=== PATIENT | male | born 1960 | race Caucasian/White ===

== ENCOUNTER 2017-05-14 10:31 | Emergency (ER) | payer OTHER ==
[~2017-05-14] VITALS: Ht 177.8 cm; Wt 70.9 kg
[~2017-05-14 10:31] MED LIST: CARI350T PO; HYDR-4446 PO; IBUP-974 PO
[2017-05-14 11:02] VITALS: BP 142/93
--- NOTE | 2017-05-14 12:10 | NUR ---
PATIENT PRESENTS TO ED WITH c/o exacerbation low back pain x 2 wks;denies dysuria, denies incontinence;hx OF L5 spondylolyses;rx OFtramadol, baclofen, motrin . PT STATES HE HAS CHRONIC BACK PAIN SINCE 1998;DENIES N/V/D; SKIN IS PINK/WARM/DRY; AAOX4 WITH EVEN AND STEADY GAIT; LUNGS CLEAR BL; HR EVEN AND REGULAR; PT DENIES ANY FEVER, CP, SOB, OR COUGH AT THIS TIME; PATIENT STATES PAIN OF 8/10 AT THIS TIME;PATIENT POSITIONED FOR COMFORT; HOB ELEVATED; BEDRAILS UP X2; BED DOWN. ALL MONITORS IN PLACED.
--- NOTE | 2017-05-14 12:50 | NUR ---
AIDEN SALDAÑA AT BEDSIDE,
[2017-05-14] MEDS ORDERED: MORPHINE SULFATE 4 MG/ML SYR IM ONE (12:55)
[2017-05-14 13:17] VITALS: BP 118/85
== END 2017-05-14 13:17 | disposition home or self-care (01) ==
LOC: MED 10:31
DX: G89.29 Other chronic pain (principal); M54.5 Low back pain; F17.210 Nicotine dependence, cigarettes, uncomplicated; Z91.041 Radiographic dye allergy status; Z91.013 Allergy to seafood
CPT/HCPCS: 81002; 96372; 99283; J2270

== ENCOUNTER 2017-06-23 13:32 | Emergency (ER) | payer OTHER ==
[~2017-06-23] VITALS: Ht 175.3 cm; Wt 70.3 kg
[2017-06-23 13:53] VITALS: BP 149/85
--- NOTE | 2017-06-23 14:02 | NUR ---
Patient ambulated to bed 08.
--- NOTE | 2017-06-23 14:12 | NUR ---
Dr. Anthony evaluating patient at bedside.
[2017-06-23] MEDS ORDERED: HYDROmorphone PFS 2 MG/ML SYR IM ONE (14:15)
--- NOTE | 2017-06-23 14:34 | NUR ---
MEDICATED FOR LT. LEG PAIN
--- NOTE | 2017-06-23 14:46 | NUR ---
PATIENT PRESENTS TO ED WITH C/O LEFT SIDED LOWER BACK PAIN RADIATING LLE X LAST NIGHT S/P ALMOST TRIPPED GETTING OUT OF THE SHOWER----DENIES DYSURIA;HX OF L1-L5 DEGENERATIVE DISC DISEASE, L5-S1 SPONDYLOLYSES . DENIES N/V/D; SKIN IS PINK/WARM/DRY; AAOX4 WITH EVEN AND STEADY GAIT; LUNGS CLEAR BL; HR EVEN AND REGULAR; PT DENIES ANY FEVER, CP, SOB, OR COUGH AT THIS TIME; PATIENT STATES PAIN OF 8/10 AT THIS TIME; PATIENT POSITIONED FOR COMFORT; HOB ELEVATED; BEDRAILS UP X2; BED DOWN. ER MD MADE AWARE OF PT STATUS.
[2017-06-23 14:56] VITALS: BP 149/85
--- NOTE | 2017-06-23 14:56 | NUR ---
Patient discharged with v/s stable. Written and verbal after care instructions given and explained. Patient verbalized understanding. Ambulatory with steady gait. All questions addressed prior to discharge. Advised to follow up with PMD.
== END 2017-06-23 14:56 | disposition home or self-care (01) ==
LOC: MED 13:32
DX: M54.42 Lumbago with sciatica, left side (principal); I10 Essential (primary) hypertension; Z91.041 Radiographic dye allergy status; Z91.013 Allergy to seafood
CPT/HCPCS: 96372; 99283; J1170

== ENCOUNTER 2017-07-05 11:29 | Emergency (ER) | payer OTHER ==
[~2017-07-05] VITALS: Ht 177.8 cm; Wt 70.0 kg
[2017-07-05 11:40] VITALS: BP 141/95
--- NOTE | 2017-07-05 13:46 | NUR ---
PATIENT TO BED 8
--- NOTE | 2017-07-05 13:47 | NUR ---
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 PAIN 06/13.
--- NOTE | 2017-07-05 14:39 | NUR ---
Patient being evaluated by DR CAMACHO at bedside.
[2017-07-05] MEDS ORDERED: KETOROLAC 60 MG/2 ML VIAL IM ONE (14:45)
--- NOTE | 2017-07-05 14:58 | NUR ---
Patient discharged with v/s stable. Written and verbal after care instructions given and explained. Patient alert, oriented and verbalized understanding of instructions. Ambulatory with steady gait. All questions addressed prior to discharge. ID band removed. Patient advised to follow up with PMD. Rx of soma & neurontin given. Patient educated on indication of medication including possible reaction and side effects. Opportunity to ask questions provided and answered.
[2017-07-05 14:59] VITALS: BP 140/89
== END 2017-07-05 14:58 | disposition home or self-care (01) ==
LOC: MED 11:29
DX: G89.29 Other chronic pain (principal); G54.5 Neuralgic amyotrophy; Z91.041 Radiographic dye allergy status; Z79.899 Other long term (current) drug therapy
CPT/HCPCS: 96372; 99283; J1885

== ENCOUNTER 2018-03-27 15:43 | Emergency (ER) | payer OTHER ==
[~2018-03-27] VITALS: Ht 177.8 cm; Wt 67.1 kg
[~2018-03-27 15:43] MED LIST changes: +ACET-8386 PO; -HYDR-4446 PO
[2018-03-27 15:48] VITALS: BP 142/83
[2018-03-27] MEDS: KETOROLAC 30 MG/ML VIAL IM ONE (16:20)
[2018-03-27] MEDS: MORPHINE SULFATE 4 MG/ML SYR IM ONE (16:20)
[2018-03-27] MEDS: CYCLOBENZAPRINE 10 MG TAB PO ONE (16:20)
== END 2018-03-27 16:37 | disposition home or self-care (01) ==
LOC: MED 15:43
DX: G89.29 Other chronic pain (principal); M54.5 Low back pain; Z79.899 Other long term (current) drug therapy; Z91.013 Allergy to seafood; Z88.8 Allergy status to other drugs, medicaments and biological substances
CPT/HCPCS: 96372; 99284; J1885; J2270

== ENCOUNTER 2018-07-17 13:45 | Emergency (ER) | payer OTHER ==
[~2018-07-17] VITALS: Ht 177.8 cm; Wt 61.2 kg
[2018-07-17 14:01] VITALS: BP 135/101
--- NOTE | 2018-07-17 14:03 | NUR ---
PT C/O CHRONIC BACK PAIN X 5 DAYS THAT HAS BEEN WORSENING D/T DISC DEGENERATION. 8/10 ACHING, NON RADIATING. TAKES MOTRIN 800S AT HOME. VSS. NO OTHER COMPLAINTS.
--- NOTE | 2018-07-17 14:34 | NUR ---
patient lwbs; pt exited er to lobby with steady gait.
== END 2018-07-17 14:34 | disposition left against medical advice (07) ==
LOC: MED 13:45
DX: M54.9 Dorsalgia, unspecified (principal); Z53.21 Procedure and treatment not carried out due to patient leaving prior to being seen by health care provider

== ENCOUNTER 2019-03-03 14:24 | Emergency (ER) | payer OTHER ==
[~2019-03-03] VITALS: Ht 175.3 cm; Wt 61.2 kg
[2019-03-03 14:34] VITALS: BP 118/90
[2019-03-03] MEDS ORDERED: IBUP-2213 PO (14:40)
[2019-03-03] MEDS ORDERED: GABA250S1 PO (14:40)
--- NOTE | 2019-03-03 14:42 | NUR ---
PATIENT AMBULATED TO BED 5
--- NOTE | 2019-03-03 15:07 | NUR ---
PATIENT LEFT WITHOUT BEING SEEN BY DR. CAMACHO. NO FURTHER CARE PROVIDED FOR PATIENT.
== END 2019-03-03 15:07 | disposition left against medical advice (07) ==
LOC: MED 14:24
DX: M79.641 Pain in right hand (principal); Z53.21 Procedure and treatment not carried out due to patient leaving prior to being seen by health care provider

== ENCOUNTER 2019-04-19 15:57 | Emergency (ER) | payer OTHER ==
[~2019-04-19] VITALS: Ht 177.8 cm; Wt 61.2 kg
[~2019-04-19 15:57] MED LIST changes: +GABA250S1 PO; +IBUP-2213 PO
[2019-04-19 16:07] VITALS: BP 139/84
--- NOTE | 2019-04-19 16:16 | NUR ---
VSS. WAIT IN LOBBY
--- NOTE | 2019-04-19 18:29 | NUR ---
Marvin goodrichtheron in [facility] - 04/19/19 at 1829 by [id number]
== END 2019-04-19 16:54 | disposition left against medical advice (07) ==
LOC: MED 15:57
DX: M54.5 Low back pain (principal); M54.2 Cervicalgia; Z53.21 Procedure and treatment not carried out due to patient leaving prior to being seen by health care provider

== ENCOUNTER 2019-04-22 19:14 | Emergency (ER) | payer OTHER ==
[~2019-04-22] VITALS: Ht 177.8 cm; Wt 61.2 kg
[2019-04-22 19:22] VITALS: BP 140/80
--- NOTE | 2019-04-22 19:22 | NUR ---
TO BED # 01 AMBULATORY
--- NOTE | 2019-04-22 19:40 | NUR ---
PT C/O RIGHT LOWER BACK PAIN, NECK PAIN, AND LEFT LEG INNER-SIDED NUMBNESS FOR 4 DAYS. DENIES TRAUMA AND INJURY. DENIES N/V/D; SKIN IS PINK/WARM/DRY; AAOX4 WITH EVEN AND STEADY GAIT; PT DENIES ANY FEVER, CP, SOB, OR COUGH AT THIS TIME; PATIENT STATES PAIN OF 8/10 AT THIS TIME; VSS; PATIENT POSITIONED FOR COMFORT; HOB ELEVATED; BEDRAILS UP X1; BED DOWN. ER MD MADE AWARE OF PT STATUS.
[2019-04-22] MEDS ORDERED: ONDANSETRON 4 MG ODT PO ONE (20:10)
[2019-04-22] MEDS ORDERED: fentaNYL 0.05 MG/ML VIAL IM ONE (20:10)
[2019-04-22 21:00] VITALS: BP 139/78
--- NOTE | 2019-04-22 21:03 | NUR ---
Patient discharged with v/s stable. Written and verbal after care instructions given and explained. Patient alert, oriented and verbalized understanding of instructions. Ambulatory with steady gait. All questions addressed prior to discharge. ID band removed. Patient advised to follow up with PMD. Rx of NORCO AND IBUPROFEN given. Patient educated on indication of medication including possible reaction and side effects. Opportunity to ask questions provided and answered.
== END 2019-04-22 21:03 | disposition home or self-care (01) ==
LOC: MED 19:14
DX: M54.2 Cervicalgia (principal); G89.29 Other chronic pain; M54.5 Low back pain; F17.210 Nicotine dependence, cigarettes, uncomplicated; Z88.8 Allergy status to other drugs, medicaments and biological substances; Z79.899 Other long term (current) drug therapy
CPT/HCPCS: 96372; 99283; J3010; Q0162